=== PATIENT | female | born 1990 | race Caucasian/White ===

== ENCOUNTER → 2016-08-20 | Outpatient (REF) | payer OTHER ==
[~2016-08-20] MED LIST: ACET65TA OR; VICO5TAB OR
[2016-08-20 20:23] LABS: BASO % 0.6 % (0.0-1.0); EOS # 0.1 K/mm3 (0.0-0.50); EOS % 1.8 % (0.0-3.0); LARGE UNSTAINED CELL # 0.1 K/mm3 (0.0-0.4); LARGE UNSTAINED CELL % 1.5 % (0.0-4.0); LYMPH # 2.3 K/mm3 (1.5-6.5); LYMPH % 31.6 % (24.0-44.0); MEAN CORPUSCULAR HEMOGLOBIN 28.7 pg (27.0-33.0); MEAN CORPUSCULAR HGB CONC 34.1 g/dl (32.0-36.5); MONO # 0.4 K/mm3 (0.0-0.8); MONO % 5.3 % (0.0-5.0); NEUTROPHILS # 4.2 K/mm3 (1.8-7.7); NEUTROPHILS % 59.1 % (36.0-66.0); PLATELET COUNT, AUTOMATED 232 k/mm3 (150-450); RED CELL DISTRIBUTION WIDTH 13.2 % (11.5-14.5); WHITE BLOOD COUNT 7.1 K/mm3 (4.0-10.0)
[2016-08-20 20:39] LABS: ALBUMIN 4.5 GM/DL (3.2-5.2); ALBUMIN/GLOBULIN RATIO 1.45 (1.00-1.93); ALKALINE PHOSPHATASE 75 U/L (45-117); ALT/SGPT 41 U/L (12-78); ANION GAP 6 MEQ/L (8-16); AST/SGOT 28 U/L (15-37); BILIRUBIN,TOTAL 0.3 MG/DL (0.2-1.0); BLOOD UREA NITROGEN 18 MG/DL (7-18); CALCIUM LEVEL 9.4 MG/DL (8.5-10.1); CARBON DIOXIDE LEVEL 30 MEQ/L (21-32); CHLORIDE LEVEL 103 MEQ/L (98-107); CREATININE FOR GFR 0.68 MG/DL (0.55-1.02); GLOMERULAR FILTRATION RATE > 60.0 (>60); GLUCOSE, FASTING 89 MG/DL (70-105); SODIUM LEVEL 139 MEQ/L (136-145); TOTAL PROTEIN 7.6 GM/DL (6.4-8.2)
== END ==
LOC: M LAB REF 20:10
PROVIDERS: ATTEND Physician Assistant
DX: R35.0 Frequency of micturition (principal); R10.12 Left upper quadrant pain

== ENCOUNTER → 2017-06-24 | Outpatient (CLI) | payer OTHER ==
[2017-06-24 12:07] LABS: BASO % 0.5 % (0.0-1.0); EOS # 0.2 10^3/uL (0.0-0.50); EOS % 2.1 % (0.0-3.0); HEMOGLOBIN 12.7 g/dl (12.0-15.5); IMMATURE GRANULOCYTE % 0.1 % (0-3.0); LYMPH # 2.5 10^3/uL (1.5-6.5); LYMPH % 32.8 % (24.0-44.0); MEAN CORPUSCULAR HEMOGLOBIN 26.8 pg (27.0-33.0); MEAN CORPUSCULAR HGB CONC 32.6 g/dl (32.0-36.5); MEAN CORPUSCULAR VOLUME 82.3 fl (80.0-96.0); MONO # 0.6 10^3/uL (0.0-0.8); MONO % 7.4 % (0.0-5.0); NEUTROPHILS # 4.4 10^3/uL (1.8-7.7); NEUTROPHILS % 57.1 % (36.0-66.0); PLATELET COUNT, AUTOMATED 258 10^3/uL (150-450); RED BLOOD COUNT 4.74 10^6/uL (4.00-5.40); RED CELL DISTRIBUTION WIDTH 13.2 % (11.5-14.5); WHITE BLOOD COUNT 7.7 10^3/uL (4.0-10.0)
[2017-06-24 13:05] LABS: ALBUMIN 4.3 GM/DL (3.2-5.2); ALBUMIN/GLOBULIN RATIO 1.13 (1.00-1.93); ALKALINE PHOSPHATASE 69 U/L (45-117); ALT/SGPT 32 U/L (12-78); ANION GAP 5 MEQ/L (8-16); AST/SGOT 23 U/L (7-37); BILIRUBIN,TOTAL 0.3 MG/DL (0.2-1.0); BLOOD UREA NITROGEN 15 MG/DL (7-18); CALCIUM LEVEL 9.4 MG/DL (8.5-10.1); CARBON DIOXIDE LEVEL 27 MEQ/L (21-32); CHLORIDE LEVEL 108 MEQ/L (98-107); CREATININE FOR GFR 0.67 MG/DL (0.55-1.30); FREE T4 0.74 NG/DL (0.76-1.46); GLOMERULAR FILTRATION RATE > 60.0 (>60); GLUCOSE, FASTING 93 MG/DL (70-100); IMMUNOGLOBULIN G 1040 MG/DL (681-1648); POTASSIUM SERUM 4.1 MEQ/L (3.5-5.1); RHEUMATOID FACTOR QUANT < 10.0 IU/ML (<15.0); SODIUM LEVEL 140 MEQ/L (136-145); TOTAL PROTEIN 8.1 GM/DL (6.4-8.2)
[2017-06-25 08:50] LABS: TOTAL 25(OH) VITAMIN D 20.6 NG/ML (30.0-100.0)
[2017-06-25 10:05] LABS: THYROID PEROXIDASE ANTIBODY 33.1 U/ML (<60.0)
[2017-06-28 14:12] LABS: ANTINUCLEAR ANTIBODIES DIRECT Negative (Negative); T3 REVERSE 13.2 ng/dL (9.2-24.1); THRYOGLOBULIN ANTIBODIES (ATA) < 1.0 IU/mL (0.0-0.9); THYROGLOBULIN QUANTITATIVE 7.2 ng/mL (1.5-38.5); TISSUE TRANSGLUTAMINASE IgA <2 U/mL (0-3); UNITSIGA FOR GLIADIN IGA 3 units (0-19); UNITSIGG FOR GLIADIN IGG 2 units (0-19)
[2017-06-28 14:12] LABS: ALUMINUM LEVEL 5 ug/L (0-9)
== END ==
LOC: M LAB 11:20
DX: F33.1 Major depressive disorder, recurrent, moderate (principal); F43.10 Post-traumatic stress disorder, unspecified; E66.9 Obesity, unspecified
CPT/HCPCS: 84443

== ENCOUNTER → 2017-08-17 | Outpatient (REF) | payer OTHER ==
[2017-08-17 22:54] LABS: FREE T3 3.5 PG/ML (2.2-4.0)
[2017-08-17 23:21] LABS: TOTAL 25(OH) VITAMIN D 19.3 NG/ML (30.0-100.0)
== END ==
LOC: M LABDRWAD 19:22
DX: F33.1 Major depressive disorder, recurrent, moderate (principal); F43.10 Post-traumatic stress disorder, unspecified; E66.9 Obesity, unspecified; E55.9 Vitamin D deficiency, unspecified; E03.9 Hypothyroidism, unspecified

== ENCOUNTER 2018-09-26 13:38 | Emergency (ER) | payer OTHER ==
[~2018-09-26] VITALS: Ht 152.4 cm; Wt 78.6 kg
[2018-09-26] MEDS ORDERED: diphenhydrAMINE INJ 50MG/ML VIAL (J1200) IV ONE (18:45)
[2018-09-26] MEDS ORDERED: METOCLOPRAMIDE INJ 10MG/2ML VIAL (J2765) IV ONE (18:45)
[2018-09-26] MEDS ORDERED: NS 1,000 ML IV ONE (18:45)
[2018-09-26 19:14] LABS: BASO # 0.1 10^3/uL (0.0-0.2); BASO % 0.7 % (0.0-1.0); EOS # 0.3 10^3/uL (0.0-0.50); EOS % 3.9 % (0.0-3.0); HEMATOCRIT 39.6 % (36.0-47.0); HEMOGLOBIN 13.1 g/dl (12.0-15.5); LYMPH # 2.7 10^3/uL (1.5-6.5); LYMPH % 36.1 % (24.0-44.0); MEAN CORPUSCULAR HEMOGLOBIN 28.2 pg (27.0-33.0); MEAN CORPUSCULAR HGB CONC 33.1 g/dl (32.0-36.5); MEAN CORPUSCULAR VOLUME 85.3 fl (80.0-96.0); MONO # 0.5 10^3/uL (0.0-0.8); MONO % 7.2 % (0.0-5.0); NEUTROPHILS # 3.8 10^3/uL (1.8-7.7); NEUTROPHILS % 51.8 % (36.0-66.0); PLATELET COUNT, AUTOMATED 233 10^3/uL (150-450); RED BLOOD COUNT 4.64 10^6/uL (4.00-5.40); WHITE BLOOD COUNT 7.4 10^3/uL (4.0-10.0)
[2018-09-26] MEDS ORDERED: KETOROLAC 30 MG/ML VIAL (J1885) IV ONE (19:45)
[2018-09-26 19:56] VITALS: BP 140/82
--- NOTE | 2018-09-26 20:27 | REPVR ---
EXAM: CT Head Without Contrast EXAM DATE/TIME: 09/26/2018 7:59 PM CLINICAL HISTORY: 27 years old, female; Pain; Headache not specified; Additional info: Headache, vision changes TECHNIQUE: Imaging protocol: Computed tomography images of the head without contrast. Radiation optimization: All CT scans at this facility use at least one of these dose optimization techniques: automated exposure control; mA and/or kV adjustment per patient size (includes targeted exams where dose is matched to clinical indication); or iterative reconstruction. COMPARISON: No relevant prior studies available. FINDINGS: Brain: Normal. No hemorrhage. Unremarkable white matter. No mass effect. Ventricles: Normal. No ventriculomegaly. Bones/joints: Unremarkable. No acute fracture. Sinuses: Visualized sinuses are unremarkable. No fluid levels. Mastoid air cells: Visualized mastoid air cells are well aerated. No mastoid effusion. Soft tissues: Unremarkable. IMPRESSION: Negative noncontrast head CT. Electronically signed by: Arie Ovalles On 09/26/2018 20:27:32 PM
[2018-09-29 00:06] LABS: Lyme Disease IgG/IgM Antibodie <0.91 ISR (0.00-0.90); Lyme Disease IgM Ab Quantitati <0.80 index (0.00-0.79)
== END 2018-09-26 21:08 | disposition home or self-care (01) ==
LOC: M ED 13:38
DX: G43.909 Migraine, unspecified, not intractable, without status migrainosus (principal); Z88.0 Allergy status to penicillin; Z88.1 Allergy status to other antibiotic agents; F17.210 Nicotine dependence, cigarettes, uncomplicated
CPT/HCPCS: 36415; 70450; 80047; 83735; 84702; 85025; 86617; 96361; 96374; 96375; 99284; J1200; J1885; J2765

== ENCOUNTER 2018-11-20 12:01 | Emergency (ER) | payer OTHER, SELFPAY ==
[~2018-11-20] VITALS: Ht 152.4 cm; Wt 77.3 kg
[2018-11-20] MEDS ORDERED: BENZONATATE 100 MG CAP PO ONE (14:15)
[2018-11-20 14:42] LABS: BASO % 0.3 % (0.0-1.0); EOS # 0.1 10^3/uL (0.0-0.5); EOS % 1.1 % (0.0-3.0); HEMATOCRIT 43.1 % (36.0-47.0); HEMOGLOBIN 14.2 g/dl (12.0-15.5); LYMPH # 1.7 10^3/uL (1.5-5.0); LYMPH % 17.6 % (24.0-44.0); MEAN CORPUSCULAR HGB CONC 32.9 g/dl (32.0-36.5); MONO # 0.8 10^3/uL (0.0-0.8); MONO % 8.7 % (0.0-5.0); NEUTROPHILS # 6.8 10^3/uL (1.5-8.5); NEUTROPHILS % 72.1 % (36.0-66.0); PLATELET COUNT, AUTOMATED 238 10^3/uL (150-450); RED BLOOD COUNT 5.07 10^6/uL (4.00-5.40); WHITE BLOOD COUNT 9.4 10^3/uL (4.0-10.0)
[2018-11-20 14:56] LABS: INFLUENZA A AMPLIFICATION NEGATIVE (NEGATIVE); INFLUENZA B AMPLIFICATION NEGATIVE (NEGATIVE)
[2018-11-20 15:17] LABS: ALBUMIN 4.2 GM/DL (3.2-5.2); ALT/SGPT 27 U/L (12-78); BILIRUBIN,DIRECT 0.1 MG/DL (0.0-0.2); BILIRUBIN,TOTAL 0.6 MG/DL (0.2-1.0); BLOOD UREA NITROGEN 10 MG/DL (7-18); CALCIUM LEVEL 9.3 MG/DL (8.5-10.1); CARBON DIOXIDE LEVEL 27 MEQ/L (21-32); CHLORIDE LEVEL 102 MEQ/L (98-107); CK-MB VALUE MASS 3.4 NG/ML (<3.6); CPK CREATINE PHOSPHOKINASE 368 U/L (26-192); CREATININE FOR GFR 0.83 MG/DL (0.55-1.30); GLOMERULAR FILTRATION RATE > 60.0 (>60); GLUCOSE, FASTING 97 MG/DL (70-100); MB/CK RELATIVE INDEX 0.92 (< OR =4); POTASSIUM SERUM 3.6 MEQ/L (3.5-5.1); SODIUM LEVEL 136 MEQ/L (136-145); TOTAL PROTEIN 8.1 GM/DL (6.4-8.2); TROPONIN I < 0.02 NG/ML (< 0.10)
[2018-11-20 16:28] VITALS: BP 128/81
[2018-11-20] MEDS ORDERED: GNP15SYP PO (16:30)
--- NOTE | 2018-11-20 19:56 | REP ---
REASON: Abdominal pain. FINDINGS: The superior mediastinal structures are midline. The cardiac silhouette is unremarkable in size, shape, and position. The diaphragmatic surfaces of the lungs are regular, and the costophrenic angles are clear. The pulmonary galeana are clear. The imaged osseous structures are intact. IMPRESSION: There is no acute cardiopulmonary disease. Electronically Signed by Otto Root DO 11/21/2018 10:45 A
--- NOTE | 2018-11-22 04:19 | ECGEPIP ---
[facility] - ED Test Date: 2018-11-20 Pat Name: KHAI ALMARAZ Department: Room: - Gender: Female Lapidarist: : 1990 Requested By: VINCE Frank PA-C Order Number: [id number] Reading MD: Patricio Henson Measurements Intervals [place] Rate: 97 P: 62 SD: 137 QRS: 50 QRSD: 98 T: 24 QT: 354 QTc: 451 Interpretive Statements SINUS RHYTHM INCOMPLETE RIGHT BUNDLE BRANCH BLOCK NONSPECIFIC T-WAVE ABNORMALITY NO PRIORS FOR COMPARISON Electronically Signed on 11-22-2018 4:19:06 EDT by Patricio Henson
== END 2018-11-20 16:36 | disposition home or self-care (01) ==
LOC: M ED 12:01
DX: M94.0 Chondrocostal junction syndrome [Tietze] (principal); J06.9 Acute upper respiratory infection, unspecified

== ENCOUNTER 2018-11-29 10:55 | Emergency (ER) | payer SELFPAY ==
[~2018-11-29] VITALS: Ht 152.4 cm; Wt 72.7 kg
[~2018-11-29 10:55] MED LIST changes: +GNP15SYP PO
[2018-11-29] MEDS ORDERED: CLEO300C2 PO (11:59)
[2018-11-29] MEDS ORDERED: POLYSOL OS (11:59)
[2018-11-29 12:13] VITALS: BP 127/79
== END 2018-11-29 12:13 | disposition home or self-care (01) ==
LOC: M ED 10:55
DX: H10.9 Unspecified conjunctivitis (principal); J02.9 Acute pharyngitis, unspecified; F17.200 Nicotine dependence, unspecified, uncomplicated; Z88.0 Allergy status to penicillin; Z88.1 Allergy status to other antibiotic agents; Z79.899 Other long term (current) drug therapy

== ENCOUNTER 2019-04-05 10:58 | Emergency (ER) | payer MEDICAID, OTHER, SELFPAY ==
[~2019-04-05] VITALS: Ht 152.4 cm; Wt 74.0 kg
[~2019-04-05 10:58] MED LIST changes: +CLEO300C2 PO; +POLYSOL OS
[2019-04-05 11:55] LABS: INFLUENZA A AMPLIFICATION NEGATIVE (NEGATIVE); INFLUENZA B AMPLIFICATION POSITIVE (NEGATIVE)
--- NOTE | 2019-04-05 11:58 | REP ---
CHEST, TWO VIEWS: There is no evidence of acute infiltrate. No pleural effusion is seen. The heart is normal in size. The mediastinal silhouette is unremarkable. The visualized osseous structures are intact. IMPRESSION: No acute pulmonary disease. Electronically Signed by Cuco Crawley MD 04/05/2019 11:01 P
[2019-04-05] MEDS ORDERED: CLEO300C2 PO (12:13)
[2019-04-05] MEDS ORDERED: TESS100C PO (12:13)
[2019-04-05] MEDS ORDERED: CLEO150C PO (12:13)
[2019-04-05 12:37] VITALS: BP 124/84
== END 2019-04-05 12:38 | disposition home or self-care (01) ==
LOC: M ED 10:58
DX: J10.1 Influenza due to other identified influenza virus with other respiratory manifestations (principal); N64.52 Nipple discharge; R05 Cough; F17.200 Nicotine dependence, unspecified, uncomplicated; Z88.0 Allergy status to penicillin; Z88.1 Allergy status to other antibiotic agents

== ENCOUNTER → 2019-07-06 | Outpatient (REF) | payer OTHER ==
[~2019-07-06] MED LIST changes: +CLEO150C PO; +TESS100C PO
== END ==
LOC: M PLALAB 11:38
PROVIDERS: ATTEND Nurse Practitioner Women's Health
DX: N64.52 Nipple discharge (principal)

== ENCOUNTER 2019-10-30 00:52 | Emergency (ER) | payer OTHER ==
[~2019-10-30] VITALS: Ht 152.4 cm; Wt 77.2 kg
[2019-10-30 00:52] VITALS: BP 153/99
[2019-10-30 02:22] LABS: BASO # 0.1 10^3/uL (0.0-0.2); BASO % 0.7 % (0.0-1.0); EOS # 0.3 10^3/uL (0.0-0.5); EOS % 2.7 % (0.0-3.0); HEMATOCRIT 40.6 % (36.0-47.0); HEMOGLOBIN 13.7 g/dl (12.0-15.5); LYMPH # 3.2 10^3/uL (1.5-5.0); LYMPH % 34.9 % (24.0-44.0); MEAN CORPUSCULAR HEMOGLOBIN 28.4 pg (27.0-33.0); MEAN CORPUSCULAR HGB CONC 33.7 g/dl (32.0-36.5); MEAN CORPUSCULAR VOLUME 84.1 fl (80.0-96.0); MONO # 0.8 10^3/uL (0.0-0.8); MONO % 8.1 % (0.0-5.0); NEUTROPHILS # 4.9 10^3/uL (1.5-8.5); NEUTROPHILS % 53.3 % (36.0-66.0); PLATELET COUNT, AUTOMATED 259 10^3/uL (150-450); RED BLOOD COUNT 4.83 10^6/uL (4.00-5.40); WHITE BLOOD COUNT 9.2 10^3/uL (4.0-10.0)
[2019-10-30 02:28] LABS: APPEARANCE, URINE CLEAR (CLEAR); BACTERIA, URINE AUTO NEGATIVE (NEGATIVE); BILIRUBIN, URINE AUTO NEGATIVE (NEGATIVE); BLOOD, URINE BLOOD NEGATIVE (NEGATIVE); COLOR, URINE YELLOW (YELLOW); GLUCOSE, URINE (UA) AUTO NEGATIVE (NEGATIVE); KETONE, URINE AUTO TRACE mg/dL (NEGATIVE); LEUKOCYTE ESTERASE, URINE AUTO NEGATIVE (NEGATIVE); MUCUS, URINE SMALL (NEGATIVE); NITRITE, URINE AUTO NEGATIVE (NEGATIVE); PROTEIN, URINE AUTO NEGATIVE (NEGATIVE); RBC, URINE AUTO 3 /HPF (0-3); SPECIFIC GRAVITY URINE AUTO 1.025 (1.002-1.035); SQUAMOUS EPITHELIAL CELL UR AU 0 /HPF (0-6); UROBILINOGEN, URINE AUTO 0.2 mg/dL (0.0-2.0); WBC, URINE AUTO 1 /HPF (0-3)
[2019-10-30 02:53] LABS: HCG, SERUM QUALITATIVE NEGATIVE (NEGATIVE)
[2019-10-30 03:05] LABS: ALBUMIN 4.2 GM/DL (3.2-5.2); ALT/SGPT 35 U/L (12-78); BILIRUBIN,DIRECT < 0.1 MG/DL (0.0-0.2); BILIRUBIN,TOTAL 0.3 MG/DL (0.2-1.0); BLOOD UREA NITROGEN 14 MG/DL (7-18); CALCIUM LEVEL 9.9 MG/DL (8.5-10.1); CARBON DIOXIDE LEVEL 27 MEQ/L (21-32); CHLORIDE LEVEL 104 MEQ/L (98-107); CREATININE FOR GFR 0.84 MG/DL (0.55-1.30); GLOMERULAR FILTRATION RATE > 60.0 (>60); GLUCOSE, FASTING 96 MG/DL (70-100); LIPASE 88 U/L (73-393); POTASSIUM SERUM 4.1 MEQ/L (3.5-5.1); SODIUM LEVEL 141 MEQ/L (136-145); TOTAL PROTEIN 8.1 GM/DL (6.4-8.2)
[2019-10-30] MEDS ORDERED: ISOVUE-370 76% 100ML VIAL As Ordered ONE (03:42)
--- NOTE | 2019-10-30 04:19 | REPVR ---
PROCEDURE INFORMATION: Exam: CT Abdomen And Pelvis With Contrast Exam date and time: 10/30/2019 3:55 AM Age: 28 years old Clinical indication: Abdominal pain; Localized; Left; Additional info: L sided pain TECHNIQUE: Imaging protocol: Computed tomography of the abdomen and pelvis with intravenous contrast. Radiation optimization: All CT scans at this facility use at least one of these dose optimization techniques: automated exposure control; mA and/or kV adjustment per patient size (includes targeted exams where dose is matched to clinical indication); or iterative reconstruction. Contrast material: ISOVUE 370; Contrast volume: 100 ml; Contrast route: INTRAVENOUS (IV); COMPARISON: US PELVIC NON OB COMPLETE 10/02/2013 12:59 PM FINDINGS: Lungs: The visualized portions of the lung bases are normal. Liver: There are no focal liver lesions present. Gallbladder and bile ducts: The gallbladder is contracted, limiting its assessment. No definite stones identified. There is no biliary ductal dilation. Pancreas: The pancreas is normal with no ductal dilation. Spleen: The spleen is normal. Adrenals: The adrenal glands are normal. Kidneys and ureters: The kidneys are unremarkable. There are no ureteral stones or hydronephrosis. Stomach and bowel: The small bowel appears unremarkable. There is focal stranding adjacent to the distal colon at the junction of the left and sigmoid colon with equivocal mild short segment thickening of the colon at the site. The stranding is predominantly on the anterolateral/anti mesenteric side and there is elliptoid somewhat preserved fat density centrally in the area of stranding. No definite diverticulosis is identified. Appendix: There has been an appendectomy. Intraperitoneal space: There is no free intraperitoneal air. There is no evidence of free intraperitoneal or pelvic fluid. Vasculature: No aortic aneurysm. Lymph nodes: There are several enlarged perirectal lymph nodes, with the largest measuring 13 mm in diameter. Bladder: The bladder is mostly collapsed. No bladder stones are identified. Reproductive: The uterus is unremarkable. There is a 2.1 cm cyst within the left ovary. There is a tampon in the vagina. Bones/joints: Unremarkable. No acute fracture. Soft tissues: There is a small periumbilical hernia containing fat. IMPRESSION: 1. Focal stranding adjacent to the distal colon at the junction of the left in the sigmoid colon equivocal short segment thickening the bowel at the site, probably due to epiploic appendagitis. Acute diverticulitis is possible but no definite diverticula are appreciated. No evidence of abscess or perforation. 2. Several mildly enlarged perirectal lymph nodes, nonspecific but possibly reactive to the inflammatory process described above. Electronically signed by: Kim Torres On 10/30/2019 04:19:17 AM
[2019-10-30] MEDS ORDERED: NORCO 5/325MG TABLET (BULK FOR ED) PO ONE (05:30)
== END 2019-10-30 05:45 | disposition home or self-care (01) ==
LOC: M ED 00:52
DX: K65.9 Peritonitis, unspecified (principal); Z88.0 Allergy status to penicillin; Z88.1 Allergy status to other antibiotic agents
CPT/HCPCS: 74177; 80048; 80076; 81001; 83690; 84703; 85025; 99284; Q9967

== ENCOUNTER → 2019-11-15 | Outpatient (CLI) | payer OTHER ==
[~2019-11-15] MED LIST changes: +GASTROGRAFIN SOLUTION 30ML (Q9963) As Ordered ONE; +ISOVUE-370 76% 100ML VIAL As Ordered ONE
--- NOTE | 2019-12-05 13:04 | REP ---
CONTRAST ENHANCED CT OF THE ABDOMEN AND PELVIS: 11/15/19 CLINICAL: Left sided colitis. TECHNIQUE: Axial contrast enhanced images from the lung bases to the pubic symphysis using oral (per protocol) and 100cc Isovue 370 intravenous contrast material with coronal and sagittal reformations. COMPARISON: 10/30/19. FINDINGS: The inflammatory stranding adjacent to the distal descending/proximal sigmoid colon has improved and near completely resolved. However, enhancing prominent lymph nodes in a perirectal distribution along the anterior margin of the sacrum (image 97) through to the level of the rectum (image 113) are again identified and appear slightly more prominent than prior examination raising the possibility of continued infection/inflammatory process. Correlation and follow- up is recommended. The remainder of the small and large bowel is unremarkable. Liver, spleen, pancreas, gallbladder, bilateral adrenal glands and kidneys are normal. Further evaluation of the pelvis demonstrates normal bladder and age appropriate uterus/adnexa. No ascites. No free air. Abdominal aorta and vasculature appear normal. Osseous structures are intact and without acute osseous abnormality. Lung bases are clear. IMPRESSION: 1. The previously noted fat stranding adjacent to the distal descending colon appears significantly improved and the small and large bowel appears normal without obstruction or acute focal inflammatory changes. 2. Prominent enhancing lymph nodes in the presacral and perirectal space within the pelvis measuring up to 15mm appears slightly more prominent than prior examination and suggests an underlying continued infectious inflammatory process. Correlation and follow-up as well as the possibility for colonoscopy may be warranted. 3. Remainder of examination is normal. MTDD
== END ==
LOC: M RAD 13:34
PROVIDERS: ATTEND Surgery
DX: K51.519 Left sided colitis with unspecified complications (principal)
CPT/HCPCS: 74177; Q9963; Q9967

== ENCOUNTER → 2019-11-24 | Outpatient (CLI) | payer OTHER ==
[~2019-11-24] MED LIST changes: -GASTROGRAFIN SOLUTION 30ML (Q9963) As Ordered ONE; -ISOVUE-370 76% 100ML VIAL As Ordered ONE
--- NOTE | 2019-12-07 07:34 | REP ---
PELVIC SONOGRAPHY HISTORY: Left ovarian cyst. COMPARISON: CT study 11/15/2019. FINDINGS: Transabdominal and transvaginal scanning are performed. Scan quality is inhibited to some degree by patient body habitus and bowel gas. Uterine dimensions are 8.8 x 4.1 x 5.4 cm. Uterine texture is somewhat heterogeneous. Endometrial echo is 0.9 cm thick. Question of septate uterine morphology. No focal uterine mass is seen. No free fluid is noted. The right ovary contains multiple small follicles and is normal overall measuring 2.3 x 1.7 x 3.4 cm. Its Doppler flow is normal. Resistive index 0.47. The left ovary measures 3.7 x 1.8 x 4.4 cm. Its Doppler flow is intact with resistive index 0.42. There is a 2.3 x 2.2 x 1.2 cm simple left ovarian cyst consistent with an ovarian follicle. No significant ovarian cyst is seen on either side. Urinary bladder on transabdominal scanning has a calculated volume of 131 mL. Visualized bladder lee are smooth. IMPRESSION: Negative pelvic sonography. Small follicle cyst left ovary. MTDD
== END ==
LOC: M WHC 14:49
PROVIDERS: ATTEND Nurse Practitioner Women's Health
DX: N83.202 Unspecified ovarian cyst, left side (principal)

== ENCOUNTER → 2019-12-04 | Outpatient (CLI) | payer OTHER ==
[2019-12-04 17:09] LABS: ALT/SGPT 38 U/L (12-78); BILIRUBIN,TOTAL 0.5 MG/DL (0.2-1.0); BLOOD UREA NITROGEN 11 MG/DL (7-18); CALCIUM LEVEL 9.5 MG/DL (8.5-10.1); CARBON DIOXIDE LEVEL 29 MEQ/L (21-32); CHLORIDE LEVEL 106 MEQ/L (98-107); CREATININE FOR GFR 0.88 MG/DL (0.55-1.30); GLOMERULAR FILTRATION RATE > 60.0 (>60); GLUCOSE, FASTING 82 MG/DL (70-100); SODIUM LEVEL 140 MEQ/L (136-145); TOTAL PROTEIN 7.5 GM/DL (6.4-8.2)
[2019-12-04 17:13] LABS: BASO % 0.6 % (0.0-1.0); EOS # 0.2 10^3/uL (0.0-0.5); EOS % 2.5 % (0.0-3.0); HEMATOCRIT 39.4 % (36.0-47.0); HEMOGLOBIN 12.9 g/dl (12.0-15.5); LYMPH # 2.6 10^3/uL (1.5-5.0); LYMPH % 36.5 % (24.0-44.0); MEAN CORPUSCULAR HEMOGLOBIN 28.4 pg (27.0-33.0); MEAN CORPUSCULAR HGB CONC 32.7 g/dl (32.0-36.5); MEAN CORPUSCULAR VOLUME 86.8 fl (80.0-96.0); MONO # 0.6 10^3/uL (0.0-0.8); MONO % 8.8 % (0.0-5.0); NEUTROPHILS # 3.6 10^3/uL (1.5-8.5); NEUTROPHILS % 51.3 % (36.0-66.0); PLATELET COUNT, AUTOMATED 255 10^3/uL (150-450); RED BLOOD COUNT 4.54 10^6/uL (4.00-5.40); WHITE BLOOD COUNT 7.1 10^3/uL (4.0-10.0)
== END ==
LOC: M WUC 11:42
PROVIDERS: ATTEND Physician Assistant
DX: R19.7 Diarrhea, unspecified (principal)

== ENCOUNTER → 2019-12-09 | Outpatient (REF) | payer OTHER | LOC: M WUC 18:27 | PROVIDERS: ATTEND Nurse Practitioner Family | DX: R19.7 Diarrhea, unspecified (principal) ==

== ENCOUNTER → 2019-12-13 | Outpatient (CLI) | payer OTHER ==
[2019-12-13 17:46] LABS: HEMATOCRIT 40.2 % (36.0-47.0); HEMOGLOBIN 13.4 g/dl (12.0-15.5); MEAN CORPUSCULAR HEMOGLOBIN 28.6 pg (27.0-33.0); MEAN CORPUSCULAR HGB CONC 33.3 g/dl (32.0-36.5); MEAN CORPUSCULAR VOLUME 85.9 fl (80.0-96.0); PLATELET COUNT, AUTOMATED 265 10^3/uL (150-450); RED BLOOD COUNT 4.68 10^6/uL (4.00-5.40); WHITE BLOOD COUNT 8.5 10^3/uL (4.0-10.0)
[2019-12-13 18:01] LABS: BLOOD UREA NITROGEN 14 MG/DL (7-18); CALCIUM LEVEL 9.8 MG/DL (8.5-10.1); CARBON DIOXIDE LEVEL 28 MEQ/L (21-32); CHLORIDE LEVEL 102 MEQ/L (98-107); GLOMERULAR FILTRATION RATE > 60.0 (>60); GLUCOSE, FASTING 104 MG/DL (70-100); POTASSIUM SERUM 4.2 MEQ/L (3.5-5.1); SODIUM LEVEL 136 MEQ/L (136-145)
== END ==
LOC: M LAB 16:21
PROVIDERS: ATTEND Surgery
DX: R10.32 Left lower quadrant pain (principal)

== ENCOUNTER → 2019-12-22 | Outpatient (CLI) | payer OTHER | LOC: M LABSMTC 09:58 | PROVIDERS: ATTEND Anesthesiology | DX: Z01.812 Encounter for preprocedural laboratory examination (principal); Z20.828 Contact with and (suspected) exposure to other viral communicable diseases | CPT/HCPCS: C9803; U0003 ==

== ENCOUNTER 2019-12-27 06:51 | Day surgery (SDC) | payer OTHER ==
[~2019-12-27] VITALS: Ht 152.4 cm; Wt 76.7 kg
[2019-12-27] MEDS ORDERED: NS 1,000 ML IV ONE (07:00)
[2019-12-27] MEDS ORDERED: LIDOCAINE 2% 100MG/5ML SDV (FOR ANES.) As Ordered ONE (08:02)
[2019-12-27] MEDS ORDERED: propofoL 200 MG/20 ML VIAL As Ordered ONE (08:02)
--- NOTE | 2019-12-27 08:04 | ROOR ---
Patient Name: Jessica John Procedure Date: 12/27/2019 7:32 AM Date of : 1990 Age: 29 Room: [facility] Gender: Female Note Status: Finalized Procedure: Colonoscopy Indications: Abdominal pain in the left lower quadrant Providers: Jurgen Gaxiola MD Referring MD: [facility], Admin. Requesting Provider: Medicines: Monitored Anesthesia Care Complications: No immediate complications. Procedure: Pre-Anesthesia Assessment: - Prior to the procedure, a History and Physical was performed, and patient medications and allergies were reviewed. The patient is competent. The risks and benefits of the procedure and the sedation options and risks were discussed with the patient. All questions were answered and informed consent was obtained. Patient identification and proposed procedure were verified by the physician, the nurse and the firer glost kiln in the procedure room. Mental Status Examination: alert and oriented. Airway Examination: normal oropharyngeal airway and neck mobility. Respiratory Examination: clear to auscultation. CV Examination: normal. Prophylactic Antibiotics: The patient does not require prophylactic antibiotics. Prior Anticoagulants: The patient has taken no previous anticoagulant or antiplatelet agents. ASA Grade Assessment: II - A patient with mild systemic disease. After reviewing the risks and benefits, the patient was deemed in satisfactory condition to undergo the procedure. The anesthesia plan was to use monitored anesthesia care (MAC). Immediately prior to administration of medications, the patient was re-assessed for adequacy to receive sedatives. The heart rate, respiratory rate, oxygen saturations, blood pressure, adequacy of pulmonary ventilation, and response to care were monitored throughout the procedure. The physical status of the patient was re-assessed after the procedure. The Colonoscope was introduced through the anus and advanced to the cecum, identified by appendiceal orifice and ileocecal valve. The colonoscopy was performed without difficulty. The patient tolerated the procedure well. The quality of the bowel preparation was excellent. Findings: The perianal and digital rectal examinations were normal. The colon (entire examined portion) appeared normal. Estimated blood loss: none. There is no endoscopic evidence of bleeding, diverticula, erythema, inflammation, polyps or ulcerations in the sigmoid colon. No additional abnormalities were found on retroflexion. Impression: - The entire examined colon is normal. - No specimens collected. Recommendation: - Discharge patient to home (ambulatory). - Resume regular diet. - Repeat colonoscopy at 49 years old for screening purposes. Jurgen Gaxiola MD Jurgen Gaxiola MD 12/27/2019 8:03:48 AM Electronically signed by Jurgen Gaxiola MD Number of Addenda: 0 Note Initiated On: 12/27/2019 7:32 AM Estimated Blood Loss: Estimated blood loss: none.
[2019-12-27 08:21] VITALS: BP 135/95
== END 2019-12-27 08:23 | disposition home or self-care (01) ==
LOC: M OPP 06:51
PROVIDERS: ATTEND Surgery
DX: R10.32 Left lower quadrant pain (principal)

== ENCOUNTER → 2020-03-12 | Outpatient (REF) | payer OTHER ==
[2020-03-12 18:12] LABS: BASO % 0.5 % (0.0-1.0); EOS # 0.2 10^3/uL (0.0-0.5); EOS % 2.7 % (0.0-3.0); HEMATOCRIT 40.7 % (36.0-47.0); HEMOGLOBIN 13.1 g/dl (12.0-15.5); LYMPH % 44.6 % (24.0-44.0); MEAN CORPUSCULAR HEMOGLOBIN 27.6 pg (27.0-33.0); MEAN CORPUSCULAR HGB CONC 32.2 g/dl (32.0-36.5); MEAN CORPUSCULAR VOLUME 85.9 fl (80.0-96.0); MONO # 0.5 10^3/uL (0.0-0.8); MONO % 6.8 % (0.0-5.0); NEUTROPHILS % 45.2 % (36.0-66.0); PLATELET COUNT, AUTOMATED 281 10^3/uL (150-450); RED BLOOD COUNT 4.74 10^6/uL (4.00-5.40); WHITE BLOOD COUNT 6.6 10^3/uL (4.0-10.0)
[2020-03-12 18:48] LABS: ALBUMIN 4.5 GM/DL (3.2-5.2); ALT/SGPT 39 U/L (12-78); BILIRUBIN,TOTAL 0.3 MG/DL (0.2-1.0); BLOOD UREA NITROGEN 15 MG/DL (7-18); CALCIUM LEVEL 9.9 MG/DL (8.5-10.1); CARBON DIOXIDE LEVEL 32 MEQ/L (21-32); CHLORIDE LEVEL 101 MEQ/L (98-107); CREATININE FOR GFR 0.78 MG/DL (0.55-1.30); FREE T4 0.89 NG/DL (0.76-1.46); GLOMERULAR FILTRATION RATE > 60.0 (>60); GLUCOSE, FASTING 78 MG/DL (70-100); POTASSIUM SERUM 4.2 MEQ/L (3.5-5.1); SODIUM LEVEL 137 MEQ/L (136-145); THYROID STIMULATING HORMONE 0.701 uIU/ML (0.358-3.740); TOTAL PROTEIN 7.9 GM/DL (6.4-8.2)
[2020-03-12 18:50] LABS: TOTAL 25(OH) VITAMIN D 15.1 NG/ML (30.0-100.0)
== END ==
LOC: M SFHCADAM 15:44
PROVIDERS: ATTEND Physician Assistant Medical
DX: G43.109 Migraine with aura, not intractable, without status migrainosus (principal); R40.0 Somnolence; F32.0 Major depressive disorder, single episode, mild; F17.210 Nicotine dependence, cigarettes, uncomplicated; E66.01 Morbid (severe) obesity due to excess calories; E55.9 Vitamin D deficiency, unspecified

== ENCOUNTER → 2020-07-11 | Outpatient (REF) | payer OTHER | LOC: M SFHCADAM 14:39 | PROVIDERS: ATTEND Family Medicine | DX: R05 Cough (principal) ==

== ENCOUNTER → 2020-08-15 | Outpatient (REF) | payer OTHER ==
[2020-08-15 18:10] LABS: APPEARANCE, URINE CLEAR (CLEAR); BACTERIA, URINE AUTO NEGATIVE (NEGATIVE); BILIRUBIN, URINE AUTO NEGATIVE (NEGATIVE); BLOOD, URINE BLOOD NEGATIVE (NEGATIVE); COLOR, URINE YELLOW (YELLOW); GLUCOSE, URINE (UA) AUTO NEGATIVE (NEGATIVE); KETONE, URINE AUTO NEGATIVE (NEGATIVE); LEUKOCYTE ESTERASE, URINE AUTO NEGATIVE (NEGATIVE); MUCUS, URINE SMALL (NEGATIVE); NITRITE, URINE AUTO NEGATIVE (NEGATIVE); PROTEIN, URINE AUTO NEGATIVE (NEGATIVE); RBC, URINE AUTO 0 /HPF (0-3); SQUAMOUS EPITHELIAL CELL UR AU 2 /HPF (0-6); URIC ACID CRYSTALS SMALL; UROBILINOGEN, URINE AUTO 0.2 mg/dL (0.0-2.0); WBC, URINE AUTO 0 /HPF (0-3)
== END ==
LOC: M LAB REF 16:39
PROVIDERS: ATTEND Physician Assistant
DX: R30.0 Dysuria (principal)

== ENCOUNTER → 2020-08-15 | Outpatient (CLI) | payer OTHER ==
--- NOTE | 2020-08-15 15:04 | REP ---
INDICATION: PAIN IN LOW BACK HEMATURIA. COMPARISON: None. TECHNIQUE: AP views abdomen and pelvis. FINDINGS: There is a nonobstructive bowel gas pattern. No dilated bowel loops are seen. No abnormal calcifications are seen in the abdomen or pelvis. A metallic clip is seen in the right lower quadrant. IMPRESSION: No acute abnormalities identified. <Electronically signed by Cuco Crawley > 08/15/20 1500
== END ==
LOC: M RAD 14:36
PROVIDERS: ATTEND Physician Assistant
DX: M54.5 Low back pain (principal); R31.9 Hematuria, unspecified

== ENCOUNTER → 2021-02-03 | Outpatient (CLI) | payer OTHER | LOC: M RAD 14:47 | PROVIDERS: ATTEND Physician Assistant Medical | DX: M25.531 Pain in right wrist (principal) ==

== ENCOUNTER → 2021-02-18 | Outpatient (REF) | payer OTHER ==
[2021-02-19 02:15] LABS: RSV AMPLIFICATION NEGATIVE (NEGATIVE)
== END ==
LOC: M LAB REF 19:00
PROVIDERS: ATTEND Physician Assistant Medical
DX: R21 Rash and other nonspecific skin eruption (principal)

== ENCOUNTER → 2021-03-26 | Outpatient (REF) | payer OTHER | LOC: M SFHCPLAZ 17:02 | PROVIDERS: ATTEND Physician Assistant | DX: R05.9 Cough, unspecified (principal) ==

== ENCOUNTER 2021-04-12 14:30 | Emergency (ER) | payer OTHER ==
[~2021-04-12] VITALS: Ht 152.4 cm; Wt 72.7 kg
[2021-04-12] MEDS ORDERED: KETOROLAC 30 MG/ML 1ML VIAL IV ONE (16:10)
[2021-04-12 16:32] LABS: BASO % 0.5 % (0.0-1.0); EOS # 0.2 10^3/uL (0.0-0.5); EOS % 2.9 % (0.0-3.0); HEMOGLOBIN 12.9 g/dl (12.0-15.5); LYMPH # 2.3 10^3/uL (1.5-5.0); LYMPH % 29.7 % (24.0-44.0); MEAN CORPUSCULAR HGB CONC 33.1 g/dl (32.0-36.5); MEAN CORPUSCULAR VOLUME 84.8 fl (80.0-96.0); MONO # 0.5 10^3/uL (0.0-0.8); MONO % 6.3 % (2.0-8.0); NEUTROPHILS # 4.6 10^3/uL (1.5-8.5); NEUTROPHILS % 60.3 % (36.0-66.0); PLATELET COUNT, AUTOMATED 216 10^3/uL (150-450); WHITE BLOOD COUNT 7.6 10^3/uL (4.0-10.0)
[2021-04-12 16:55] LABS: ALBUMIN 3.8 GM/DL (3.2-5.2); ALT/SGPT 35 U/L (12-78); BILIRUBIN,DIRECT < 0.1 MG/DL (0.0-0.2); BILIRUBIN,TOTAL 0.3 MG/DL (0.2-1.0); C REACTIVE PROTEIN QUANTITATIV < 0.30 MG/DL (0.00-0.30); LIPASE 83 U/L (73-393); TOTAL PROTEIN 7.3 GM/DL (6.4-8.2)
[2021-04-12 17:15] LABS: ERYTHROCYTE SEDIMENTATION RATE 9 mm/hr (0-20)
[2021-04-12 17:20] LABS: INR 0.9; PROTHROMBIN TIME 12.5 SECONDS (12.7-14.5)
[2021-04-12 17:21] LABS: CK-MB VALUE MASS 5.6 NG/ML (<3.6); MB/CK RELATIVE INDEX 1.12 (< OR =4); PARTIAL THROMBOPLASTIN TIME 26.9 SECONDS (25.9-37.0)
[2021-04-12 17:23] LABS: D-DIMER QUANT 378.37 ng/ml (<500)
[2021-04-12 20:07] LABS: CK-MB VALUE MASS 5.6 NG/ML (<3.6); MB/CK RELATIVE INDEX 1.17 (< OR =4)
[2021-04-12] MEDS ORDERED: LIDOCAINE 5% (LIDODERM) PATCH TD ONE (20:20)
[2021-04-12] MEDS: **NOTE PATIENT COMMENT** MISC XX SCH ×3 (21:00→22:01)
[2021-04-12 21:29] LABS: CK-MB VALUE MASS 4.3 NG/ML (<3.6); MB/CK RELATIVE INDEX 0.92 (< OR =4)
[2021-04-12] MEDS ORDERED: SUCRALFATE 1 GM TAB PO ONE (22:05)
[2021-04-12] MEDS ORDERED: GI COCKTAIL 50ML BTL(HYOSCYAMINE/MAALOX/LIDOCAINE VISCOUS)(1:3:1) PO ONE (22:05)
[2021-04-12] MEDS ORDERED: PANTOPRAZOLE 40MG VIAL (C9113 PER 1) IV ONE (22:05)
[2021-04-12] MEDS ORDERED: NORCO 5/325MG TABLET (BULK FOR ED) PO ONE (22:55)
[2021-04-12] MEDS ORDERED: ONDANSETRON 4 MG ORAL DISINTEGRATING TAB PO ONE (22:55)
[2021-04-12 23:15] VITALS: BP 133/85
== END 2021-04-12 23:16 | disposition home or self-care (01) ==
LOC: M ED 14:30
DX: R07.89 Other chest pain (principal); R10.12 Left upper quadrant pain; R51.9 Headache, unspecified; G47.33 Obstructive sleep apnea (adult) (pediatric); K57.32 Diverticulitis of large intestine without perforation or abscess without bleeding; F32.A Depression, unspecified; F41.9 Anxiety disorder, unspecified; E66.9 Obesity, unspecified; F17.200 Nicotine dependence, unspecified, uncomplicated; Z88.0 Allergy status to penicillin; Z88.1 Allergy status to other antibiotic agents
CPT/HCPCS: 36415; 71101; 80047; 80076; 82550; 82553; 83690; 84702; 85025; 85379; 85610; 85652; 85730; 86140; 93005; 96374; 96375; 99284; C9113; J1885; Q0162

== ENCOUNTER → 2021-04-29 | Outpatient (CLI) | payer OTHER | LOC: M SOG 13:11 | PROVIDERS: ATTEND Orthopaedic Surgery Hand Surgery | DX: M25.531 Pain in right wrist (principal) ==

== ENCOUNTER 2021-05-26 15:11 | Emergency (ER) | payer OTHER ==
[~2021-05-26] VITALS: Ht 152.4 cm; Wt 81.0 kg
[2021-05-26] MEDS ORDERED: PANT40TA29 (15:20)
[2021-05-26] MEDS ORDERED: DOXY100C3 (15:20)
[2021-05-26] MEDS ORDERED: TRIA1CR80 (15:20)
[2021-05-26] MEDS ORDERED: RABIES VACCINE HUMAN 2.5 INTERNATIONAL UNITS/ML VIAL (90675) IM ONE (17:10)
[2021-05-26] MEDS ORDERED: RABIES IMMUNE GLOBULIN 1500 INTERNATIONAL UNIT/5ML VIAL (90375) IM ONE ×2 (17:10→18:00)
[2021-05-26 17:47] VITALS: BP 132/83
[2021-05-26] MEDS ORDERED: RABIES IMMUNE GLOBULIN 300 INTERNATIONAL UNITS/1ML VIAL (90375) IM ONE (18:00)
== END 2021-05-26 17:55 | disposition home or self-care (01) ==
LOC: M ED 15:11
DX: Z29.14 Encounter for prophylactic rabies immune globulin (principal); Z23 Encounter for immunization; S91.031A Puncture wound without foreign body, right ankle, initial encounter; X58.XXXA Exposure to other specified factors, initial encounter; Y92.9 Unspecified place or not applicable; Y93.9 Activity, unspecified; Y99.9 Unspecified external cause status; K21.9 Gastro-esophageal reflux disease without esophagitis; F17.200 Nicotine dependence, unspecified, uncomplicated; Z88.0 Allergy status to penicillin; Z88.1 Allergy status to other antibiotic agents; Z79.899 Other long term (current) drug therapy

== ENCOUNTER 2021-05-29 08:29 | Emergency (ER) | payer OTHER ==
[~2021-05-29] VITALS: Ht 152.4 cm; Wt 81.2 kg
[~2021-05-29 08:29] MED LIST changes: +DOXY100C3; +PANT40TA29; +TRIA1CR80
[2021-05-29] MEDS ORDERED: RABIES VACCINE HUMAN 2.5 INTERNATIONAL UNITS/ML VIAL (90675) IM ONE (09:35)
[2021-05-29 09:51] VITALS: BP 125/62
== END 2021-05-29 09:54 | disposition home or self-care (01) ==
LOC: M ED 08:29
DX: Z29.14 Encounter for prophylactic rabies immune globulin (principal); Z23 Encounter for immunization; S91.031D Puncture wound without foreign body, right ankle, subsequent encounter; X58.XXXD Exposure to other specified factors, subsequent encounter; Y92.9 Unspecified place or not applicable; Y93.9 Activity, unspecified; Y99.9 Unspecified external cause status; Z88.0 Allergy status to penicillin; Z88.1 Allergy status to other antibiotic agents

== ENCOUNTER 2021-06-05 09:42 | Emergency (ER) | payer OTHER ==
[~2021-06-05] VITALS: Ht 152.4 cm; Wt 80.0 kg
[2021-06-05 09:42] VITALS: BP 131/84
[~2021-06-05 09:42] MED LIST changes: -PANT40TA29; +PANT40TA29 PO
[2021-06-05] MEDS ORDERED: CEFD300C41 PO (09:54)
[2021-06-05] MEDS ORDERED: RABIES VACCINE HUMAN 2.5 INTERNATIONAL UNITS/ML VIAL (90675) IM ONE (11:00)
[2021-06-06] MEDS ORDERED: [UNRECOGNIZED DRUG - REMARK] (07:51)
[2021-06-06] MEDS ORDERED: IBUP200C27 PO (07:51)
[2021-06-06] MEDS ORDERED: NICO14DI24 TD (07:52)
== END 2021-06-05 11:22 | disposition home or self-care (01) ==
LOC: M ED 09:42
DX: Z29.14 Encounter for prophylactic rabies immune globulin (principal); Z23 Encounter for immunization; S91.031D Puncture wound without foreign body, right ankle, subsequent encounter; X58.XXXD Exposure to other specified factors, subsequent encounter; Y92.9 Unspecified place or not applicable; Y93.9 Activity, unspecified; Z88.0 Allergy status to penicillin; Z88.1 Allergy status to other antibiotic agents; E03.9 Hypothyroidism, unspecified; R51.9 Headache, unspecified; G47.33 Obstructive sleep apnea (adult) (pediatric); K21.9 Gastro-esophageal reflux disease without esophagitis; Z79.899 Other long term (current) drug therapy

== ENCOUNTER → 2021-07-02 | Outpatient (CLI) | payer OTHER ==
[~2021-07-02] MED LIST changes: +CEFD300C41 PO; +IBUP200C27 PO; +NICO14DI24 TD; +[UNRECOGNIZED DRUG - REMARK]
== END ==
LOC: M LABSMTC 09:50
PROVIDERS: ATTEND Anesthesiology
DX: Z01.818 Encounter for other preprocedural examination (principal); Z11.52 Encounter for screening for COVID-19

== ENCOUNTER 2021-07-07 06:48 | Day surgery (SDC) | payer OTHER ==
[~2021-07-07] VITALS: Ht 152.4 cm; Wt 77.1 kg
[~2021-07-07 06:48] MED LIST changes: +NS 1,000 ML IV ONE
[2021-07-07] MEDS ORDERED: LIDOCAINE 2% 100MG/5ML SDV (FOR ANES.) As Ordered ONE (06:53)
[2021-07-07] MEDS ORDERED: propofoL 500 MG/50 ML VIAL As Ordered ONE (06:53)
[2021-07-07] MEDS ORDERED: fentaNYL 100 MCG/2 ML INJECTION As Ordered ONE (07:31)
[2021-07-07 08:12] VITALS: BP 122/79
== END 2021-07-07 08:13 | disposition home or self-care (01) ==
LOC: M OPP 06:48
PROVIDERS: ATTEND Internal Medicine Gastroenterology
DX: K29.70 Gastritis, unspecified, without bleeding (principal); K20.90 Esophagitis, unspecified without bleeding; R13.10 Dysphagia, unspecified; R12 Heartburn; Z87.19 Personal history of other diseases of the digestive system; F17.210 Nicotine dependence, cigarettes, uncomplicated; Z79.899 Other long term (current) drug therapy; Z88.0 Allergy status to penicillin; Z88.1 Allergy status to other antibiotic agents
CPT/HCPCS: 43239; 88305; J3010

== ENCOUNTER → 2021-07-24 | Outpatient (REF) | payer OTHER ==
[~2021-07-24] MED LIST changes: -NS 1,000 ML IV ONE
[2021-07-24 13:39] LABS: APPEARANCE, URINE CLEAR (CLEAR); BACTERIA, URINE AUTO NEGATIVE (NEGATIVE); BILIRUBIN, URINE AUTO NEGATIVE (NEGATIVE); BLOOD, URINE BLOOD NEGATIVE (NEGATIVE); COLOR, URINE YELLOW (YELLOW); GLUCOSE, URINE (UA) AUTO NEGATIVE (NEGATIVE); KETONE, URINE AUTO NEGATIVE (NEGATIVE); LEUKOCYTE ESTERASE, URINE AUTO NEGATIVE (NEGATIVE); MUCUS, URINE SMALL (NEGATIVE); NITRITE, URINE AUTO NEGATIVE (NEGATIVE); PROTEIN, URINE AUTO NEGATIVE (NEGATIVE); RBC, URINE AUTO 1 /HPF (0-3); SPECIFIC GRAVITY URINE AUTO 1.023 (1.002-1.035); SQUAMOUS EPITHELIAL CELL UR AU 1 /HPF (0-6); UROBILINOGEN, URINE AUTO 0.2 mg/dL (0.0-2.0); WBC, URINE AUTO 0 /HPF (0-3)
== END ==
LOC: M SFHCADAM 12:34
PROVIDERS: ATTEND Physician Assistant Medical
DX: R30.0 Dysuria (principal)

== ENCOUNTER → 2021-08-31 | Outpatient (CLI) | payer OTHER ==
[~2021-08-31] MED LIST changes: +FLUTISP
== END ==
LOC: M LABSMTC 11:16
PROVIDERS: ATTEND Anesthesiology
DX: Z01.818 Encounter for other preprocedural examination (principal); Z11.52 Encounter for screening for COVID-19

== ENCOUNTER 2021-09-03 06:02 | Day surgery (SDC) | payer OTHER ==
[~2021-09-03] VITALS: Ht 152.4 cm; Wt 75.3 kg
[2021-09-03] MEDS ORDERED: LR 1,000 ML IV SCH ×2 (06:35→08:15)
[2021-09-03] MEDS ORDERED: BUPIVACAINE HCL 0.25% 30ML VIAL As Ordered ONE (07:12)
[2021-09-03] MEDS ORDERED: LIDOCAINE 2% 100MG/5ML SDV (FOR ANES.) As Ordered ONE (07:16)
[2021-09-03] MEDS ORDERED: propofoL 200 MG/20 ML VIAL As Ordered ONE ×2 (07:16→07:44)
[2021-09-03] MEDS ORDERED: MIDAZOLAM INJ 2MG/2ML VIAL (J2250 PER 1MG) As Ordered ONE (07:17)
[2021-09-03] MEDS ORDERED: fentaNYL 100 MCG/2 ML INJECTION As Ordered ONE (07:17)
[2021-09-03] MEDS ORDERED: ONDANSETRON 4MG/2ML VIAL As Ordered ONE ×2 (07:45→08:24)
[2021-09-03] MEDS ORDERED: dexameTHASONE 4 MG/ML 1ML VIAL (J1100 PER 1MG) As Ordered ONE (07:45)
[2021-09-03] MEDS ORDERED: KETOROLAC 60MG 2ML VIAL As Ordered ONE (08:01)
[2021-09-03] MEDS ORDERED: fentaNYL 100 MCG/2 ML INJECTION IV PRN (08:15)
[2021-09-03] MEDS ORDERED: oxyCODONE 5MG TAB PO PRN (08:15)
[2021-09-03] MEDS ORDERED: ONDANSETRON 4MG/2ML VIAL IV PRN (08:15)
[2021-09-03] MEDS ORDERED: TRAM50TA2 PO (08:23)
[2021-09-03] MEDS ORDERED: oxyCODONE 5MG TAB As Ordered ONE (08:25)
[2021-09-03] MEDS ORDERED: MEPERIDINE INJ 25 MG/ML VIAL (J2175) As Ordered ONE (08:33)
[2021-09-03] MEDS ORDERED: MEPERIDINE INJ 25 MG/ML VIAL (J2175) IV PRN (08:35)
[2021-09-03 09:35] VITALS: BP 147/89
== END 2021-09-03 09:38 | disposition home or self-care (01) ==
LOC: M SDC 06:02
PROVIDERS: ATTEND Orthopaedic Surgery Hand Surgery
DX: G56.01 Carpal tunnel syndrome, right upper limb (principal); Z88.0 Allergy status to penicillin; Z88.1 Allergy status to other antibiotic agents
CPT/HCPCS: 29848; J1100; J1885; J2175; J2250; J2405; J3010

== ENCOUNTER → 2021-10-15 | Outpatient (CLI) | payer OTHER ==
[~2021-10-15] MED LIST changes: +ACET325C5 PO; +TRAM50TA2 PO
[2021-10-15 20:53] LABS: FREE T4 0.77 NG/DL (0.76-1.46); HCG, SERUM QUANTITATIVE < 1.0 MIU/ML; THYROID STIMULATING HORMONE 0.821 uIU/ML (0.358-3.740)
[2021-10-15 20:56] LABS: FOLLICLE STIMULATING HORMONE 2.4 mIU/mL
[2021-10-15 21:02] LABS: LUTEINIZING HORMONE 5.7 mIU/mL
== END ==
LOC: M PLALAB 11:20
PROVIDERS: ATTEND Family Medicine
DX: N91.2 Amenorrhea, unspecified (principal)

== ENCOUNTER → 2021-10-15 | Outpatient (CLI) | payer OTHER | LOC: M LABSMTC 09:13 | PROVIDERS: ATTEND Anesthesiology | DX: Z11.52 Encounter for screening for COVID-19 (principal) ==

== ENCOUNTER 2021-10-20 05:59 | Day surgery (SDC) | payer OTHER ==
[~2021-10-20] VITALS: Ht 152.4 cm; Wt 77.3 kg
[2021-10-20] MEDS ORDERED: LR 1,000 ML IV SCH ×3 (06:35→08:35)
[2021-10-20] MEDS ORDERED: ZYRTTAB8 PO (06:44)
[2021-10-20] MEDS ORDERED: KETOROLAC 60MG 2ML VIAL As Ordered ONE (07:13)
[2021-10-20] MEDS ORDERED: propofoL 200 MG/20 ML VIAL As Ordered ONE (07:13)
[2021-10-20] MEDS ORDERED: LIDOCAINE 2% 100MG/5ML SDV (FOR ANES.) As Ordered ONE (07:13)
[2021-10-20] MEDS ORDERED: MIDAZOLAM INJ 2MG/2ML VIAL (J2250 PER 1MG) As Ordered ONE (07:13)
[2021-10-20] MEDS ORDERED: fentaNYL 100 MCG/2 ML INJECTION As Ordered ONE (07:14)
[2021-10-20] MEDS ORDERED: ONDANSETRON 4MG 2ML VIAL As Ordered ONE (07:17)
[2021-10-20] MEDS ORDERED: METOCLOPRAMIDE INJ 10MG/2ML VIAL (J2765 PER 1) As Ordered ONE (07:17)
[2021-10-20] MEDS ORDERED: dexameTHASONE 4 MG/ML 1ML VIAL (J1100 PER 1MG) As Ordered ONE (07:17)
[2021-10-20] MEDS ORDERED: BUPIVACAINE HCL 0.25% 30ML VIAL As Ordered ONE (07:18)
[2021-10-20] MEDS ORDERED: fentaNYL 100 MCG/2 ML INJECTION IV PRN (08:05)
[2021-10-20] MEDS ORDERED: oxyCODONE 5MG TAB PO PRN (08:05)
[2021-10-20] MEDS ORDERED: ONDANSETRON 4MG 2ML VIAL IV PRN (08:05)
[2021-10-20] MEDS ORDERED: TRAM50TA2 PO (08:18)
[2021-10-20] MEDS ORDERED: MEPERIDINE INJ 25 MG/ML VIAL (J2175) IV PRN (08:35)
[2021-10-20] MEDS ORDERED: MEPERIDINE INJ 25 MG/ML VIAL (J2175) As Ordered ONE (08:40)
[2021-10-20 09:40] VITALS: BP 125/77
== END 2021-10-20 09:50 | disposition home or self-care (01) ==
LOC: M SDC 05:59
PROVIDERS: ATTEND Orthopaedic Surgery Hand Surgery
DX: G56.02 Carpal tunnel syndrome, left upper limb (principal); I10 Essential (primary) hypertension; F43.10 Post-traumatic stress disorder, unspecified; F41.9 Anxiety disorder, unspecified; F32.A Depression, unspecified; Z79.899 Other long term (current) drug therapy; G43.909 Migraine, unspecified, not intractable, without status migrainosus; K21.9 Gastro-esophageal reflux disease without esophagitis; F17.210 Nicotine dependence, cigarettes, uncomplicated; Z88.0 Allergy status to penicillin; Z88.1 Allergy status to other antibiotic agents
CPT/HCPCS: 29848; 81025; J1100; J1885; J2175; J2250; J2405; J2765; J3010

== ENCOUNTER → 2021-11-22 | Outpatient (REF) | payer OTHER ==
[~2021-11-22] MED LIST changes: +ZYRTTAB8 PO
== END ==
LOC: M WUC 18:46
PROVIDERS: ATTEND Student in an Organized Health Care Education/Training Program
DX: J06.9 Acute upper respiratory infection, unspecified (principal)

== ENCOUNTER → 2022-02-25 | Outpatient (REF) | payer OTHER | LOC: M SFHCADAM 13:16 | PROVIDERS: ATTEND Physician Assistant Medical | DX: J02.9 Acute pharyngitis, unspecified (principal) ==

== ENCOUNTER 2022-05-06 08:55 | Emergency (ER) | payer OTHER ==
[~2022-05-06] VITALS: Ht 152.4 cm; Wt 71.2 kg
[2022-05-06] MEDS ORDERED: ACETAMINOPHEN TAB 650MG DOSE (2X325MG) PO ONE (09:55)
[2022-05-06] MEDS ORDERED: CEPH500C PO (11:28)
[2022-05-06 11:35] VITALS: BP 122/66
== END 2022-05-06 11:39 | disposition home or self-care (01) ==
LOC: M ED 08:55
DX: J02.0 Streptococcal pharyngitis (principal); B34.9 Viral infection, unspecified; J21.9 Acute bronchiolitis, unspecified; K21.9 Gastro-esophageal reflux disease without esophagitis; Z88.0 Allergy status to penicillin; Z88.1 Allergy status to other antibiotic agents; Z79.899 Other long term (current) drug therapy

== ENCOUNTER → 2022-05-19 | Outpatient (CLI) | payer OTHER ==
[~2022-05-19] MED LIST changes: +CEPH500C PO
[2022-05-19 17:02] LABS: THYROID STIMULATING HORMONE 0.712 uIU/ML (0.55-4.78)
[2022-05-19 17:03] LABS: FREE T4 1.07 NG/DL (0.89-1.76)
[2022-05-19 17:07] LABS: ALKALINE PHOSPHATASE 63 U/L (46-116); ALT/SGPT 30 U/L (7.0-40); AST/SGOT 23 U/L (<34); BILIRUBIN,TOTAL 0.2 MG/DL (0.3-1.2); BLOOD UREA NITROGEN 18 MG/DL (9-23); CALCIUM LEVEL 9.4 MG/DL (8.5-10.1); CARBON DIOXIDE LEVEL 27 MMOL/L (20-31); CHLORIDE LEVEL 105 MMOL/L (98-107); GLUCOSE, FASTING 102 MG/DL (60-100); POTASSIUM SERUM 4.1 MMOL/L (3.5-5.1); SODIUM LEVEL 137 MMOL/L (136-145); TOTAL PROTEIN 7.2 G/DL (5.7-8.2)
[2022-05-19 17:08] LABS: BASO % 0.6 % (0.0-1.0); EOS # 0.1 10^3/uL (0.0-0.5); EOS % 1.6 % (0.0-3.0); HEMATOCRIT 40.9 % (36.0-47.0); HEMOGLOBIN 12.9 g/dl (12.0-15.5); LYMPH # 2.3 10^3/uL (1.5-5.0); LYMPH % 33.2 % (24.0-44.0); MEAN CORPUSCULAR HEMOGLOBIN 28.2 pg (27.0-33.0); MEAN CORPUSCULAR HGB CONC 31.5 g/dl (32.0-36.5); MEAN CORPUSCULAR VOLUME 89.3 fl (80.0-96.0); MONO # 0.3 10^3/uL (0.0-0.8); MONO % 4.4 % (2.0-8.0); NEUTROPHILS # 4.2 10^3/uL (1.5-8.5); NEUTROPHILS % 59.9 % (36.0-66.0); PLATELET COUNT, AUTOMATED 280 10^3/uL (150-450); RED BLOOD COUNT 4.58 10^6/uL (4.00-5.40)
[2022-05-19 17:10] LABS: CREATININE FOR GFR 0.65 MG/DL (0.55-1.30); GLOMERULAR FILTRATION RATE > 60.0 (>60)
== END ==
LOC: M WUC 10:09
PROVIDERS: ATTEND Physician Assistant
DX: L04.0 Acute lymphadenitis of face, head and neck (principal); J02.9 Acute pharyngitis, unspecified

== ENCOUNTER → 2022-05-26 | Outpatient (REF) | payer OTHER | LOC: M SFHCADAM 12:33 | PROVIDERS: ATTEND Physician Assistant | DX: J06.9 Acute upper respiratory infection, unspecified (principal); A49.1 Streptococcal infection, unspecified site ==

== ENCOUNTER 2023-02-14 18:36 | Emergency (ER) | payer OTHER ==
[~2023-02-14] VITALS: Ht 152.4 cm; Wt 57.8 kg
[~2023-02-14 18:36] MED LIST changes: +CEFD1CAP9 PO; -CEFD300C41 PO
[2023-02-14 18:38] VITALS: O2SAT 98
[2023-02-14] MEDS ORDERED: ACETAMINOPHEN 325 MG TAB PO ONE (21:10)
[2023-02-14 21:34] VITALS: BP 128/78; TEMP 99.6
== END 2023-02-14 21:40 | disposition home or self-care (01) ==
LOC: M ED 18:36
DX: U07.1 COVID-19 (principal); K21.9 Gastro-esophageal reflux disease without esophagitis; F60.3 Borderline personality disorder; Z88.0 Allergy status to penicillin; Z88.1 Allergy status to other antibiotic agents; F17.210 Nicotine dependence, cigarettes, uncomplicated; Z79.899 Other long term (current) drug therapy

== ENCOUNTER 2023-03-30 14:13 | Emergency (ER) | payer OTHER, SELFPAY ==
[~2023-03-30] VITALS: Ht 152.4 cm; Wt 56.0 kg
[2023-03-30 17:16] VITALS: BP 128/91; TEMP 97.6; O2SAT 98
== END 2023-03-30 17:19 | disposition home or self-care (01) ==
LOC: M ED 14:13
DX: L05.91 Pilonidal cyst without abscess (principal); K21.9 Gastro-esophageal reflux disease without esophagitis; F32.A Depression, unspecified; F41.9 Anxiety disorder, unspecified; F17.210 Nicotine dependence, cigarettes, uncomplicated; F12.90 Cannabis use, unspecified, uncomplicated; F10.10 Alcohol abuse, uncomplicated; Z88.0 Allergy status to penicillin; Z88.1 Allergy status to other antibiotic agents

== ENCOUNTER 2023-06-24 07:27 | Emergency (ER) | payer SELFPAY ==
[~2023-06-24] VITALS: Ht 152.4 cm; Wt 56.4 kg
[2023-06-24] MEDS ORDERED: ACET325C5 PO (07:31)
[2023-06-24] MEDS: PANTOPRAZOLE 40MG TAB (PROTONIX) PO ONE (08:40)
[2023-06-24 09:17] LABS: BASO % 0.3 % (0.0-1.0); EOS # 0.2 10^3/uL (0.0-0.5); EOS % 1.3 % (0.0-3.0); HEMATOCRIT 42.2 % (36.0-47.0); HEMOGLOBIN 13.9 g/dl (12.0-15.5); LYMPH # 1.4 10^3/uL (1.5-5.0); LYMPH % 11.6 % (24.0-44.0); MEAN CORPUSCULAR HEMOGLOBIN 28.7 pg (27.0-33.0); MEAN CORPUSCULAR HGB CONC 32.9 g/dl (32.0-36.5); MEAN CORPUSCULAR VOLUME 87.2 fl (80.0-96.0); MONO # 0.7 10^3/uL (0.0-0.8); MONO % 5.6 % (2.0-8.0); NEUTROPHILS # 9.7 10^3/uL (1.5-8.5); NEUTROPHILS % 80.9 % (36.0-66.0); PLATELET COUNT, AUTOMATED 268 10^3/uL (150-450); RED BLOOD COUNT 4.84 10^6/uL (4.00-5.40); WHITE BLOOD COUNT 12.1 10^3/uL (4.0-10.0)
[2023-06-24 09:18] LABS: CK-MB VALUE MASS 2.3 NG/ML (<3.6); LIPASE 30 U/L (12-53)
[2023-06-24 09:20] LABS: ALBUMIN 3.4 G/DL (3.2-5.2); ALKALINE PHOSPHATASE 51 U/L (46-116); ALT/SGPT 26 U/L (7.0-40); AST/SGOT 15 U/L (<34); BILIRUBIN,DIRECT 0.1 MG/DL (<0.4); BILIRUBIN,TOTAL 0.3 MG/DL (0.3-1.2); BLOOD UREA NITROGEN 20 MG/DL (9-23); CALCIUM LEVEL 8.9 MG/DL (8.5-10.1); CARBON DIOXIDE LEVEL 27 MMOL/L (20-31); CHLORIDE LEVEL 106 MMOL/L (98-107); CPK CREATINE PHOSPHOKINASE 137 U/L (34-145); CREATININE FOR GFR 0.59 MG/DL (0.55-1.30); GLOMERULAR FILTRATION RATE > 60.0 (>60); GLUCOSE, FASTING 105 MG/DL (60-100); MB/CK RELATIVE INDEX 1.67 (< OR =4); POTASSIUM SERUM 3.9 MMOL/L (3.5-5.1); SODIUM LEVEL 140 MMOL/L (136-145); TOTAL PROTEIN 6.7 G/DL (5.7-8.2)
[2023-06-24 09:45] VITALS: BP 133/84; TEMP 98.4; O2SAT 98
[2023-06-24] MEDS ORDERED: REXU1TAB2 PO (10:01)
[2023-06-24] MEDS ORDERED: PANT40TA29 PO (10:01)
[2023-06-24] MEDS ORDERED: HOME MED LIST COMPLETE! XX SCH (10:05)
[2023-06-24 10:17] LABS: CK-MB VALUE MASS 2.3 NG/ML (<3.6)
[2023-06-24 10:18] LABS: MB/CK RELATIVE INDEX 1.67 (< OR =4)
== END 2023-06-24 10:51 | disposition home or self-care (01) ==
LOC: M ED 07:27
DX: K21.9 Gastro-esophageal reflux disease without esophagitis (principal); R07.9 Chest pain, unspecified; I45.10 Unspecified right bundle-branch block; I10 Essential (primary) hypertension; G47.33 Obstructive sleep apnea (adult) (pediatric); F60.3 Borderline personality disorder; F17.210 Nicotine dependence, cigarettes, uncomplicated; Z88.0 Allergy status to penicillin; Z88.1 Allergy status to other antibiotic agents; Z79.1 Long term (current) use of non-steroidal anti-inflammatories (NSAID); Z79.899 Other long term (current) drug therapy

== ENCOUNTER → 2024-10-15 | Outpatient (CLI) | payer OTHER ==
[~2024-10-15] MED LIST changes: +REXU1TAB2 PO
== END ==
LOC: M RAD 14:47
PROVIDERS: ATTEND Physician Assistant
DX: S62.502A Fracture of unspecified phalanx of left thumb, initial encounter for closed fracture (principal); W18.30XA Fall on same level, unspecified, initial encounter; Y92.009 Unspecified place in unspecified non-institutional (private) residence as the place of occurrence of the external cause

== ENCOUNTER → 2024-10-15 | Outpatient (REF) | payer OTHER, SELFPAY ==
[2024-10-15 11:27] LABS: URINE PREG TEST NEGATIVE (NEGATIVE)
== END ==
LOC: M LAB REF 10:12
PROVIDERS: ATTEND Physician Assistant
DX: N91.2 Amenorrhea, unspecified (principal)